=== PATIENT | female | born 1995 | race Caucasian/White ===

== ENCOUNTER 2023-07-03 07:27 | Outpatient (AMB) | payer OTHER, SELFPAY ==
[2023-07-03 07:49] VITALS: BP 98/60; PULSE 74; O2SAT 98; BMI 24.6
--- NOTE | 2023-07-03 07:49 | MHC.PC.OV ---
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 1. Little interest or pleasure in doing things: not at all 2. Feeling down, depressed, or hopeless: not at all 3. Trouble falling or staying asleep, or sleeping too much: more than half the days 4. Feeling tired or having little energy: more than half the days 5. Poor appetite or overeating: not at all 6. Feeling bad about yourself - or that you are a failure or have let yourself or your family down: not at all 7. Trouble concentrating on things, such as reading the newspaper or watching television: more than half the days 8. Moving or speaking so slowly that other people could have noticed. Or the opposite - being so fidgety or restless that you have been moving around a lot more than usual: several days 9. Thoughts that you would be better off or of hurting yourself in some way: not at all Total score: 7 Depression Screening Interpretation: Negative Depression Screening Done: Yes Source: Developed by Drs. Seth Stark, Mariah Grove, Rachid Berkowitz and colleagues, with an educational bryan from [employer]. Thrive Questionnaire Date Thrive assessed: 07/03/23 I am a: Patient What is your living situation today?: I have a steady place to live Within the past 12 months, did the food you bought not last and you didn't have the money to get more?: Never true Within the past 12 months, did you worry whether your food would run out before you got money to buy more?: Never true Do you have trouble paying for medicines?: No Do you have trouble getting transportation to medical appointments?: No Do you have trouble paying your heating and electricity bill?: No Do you have trouble taking care of your child, family member or friend?: No Do you have trouble with day-to-day activities such as bathing, preparing meals, shopping, managing finances, etc.?: No Are you currently unemployed and looking for a job?: No Are you interested in more education?: No THRIVE Score: 0 AUDIT C Alcohol Use Questionnaire (AUDIT-C) 1. How often do you have a drink containing alcohol?: Monthly or less 2. How many drinks containing alcohol do you have on a typical day when you are drinking?: 1 or 2 3. How often do you have six or more drinks on one occasion?: Never Total Score: 1 YASMANY-7 AMB Questionnaire YASMANY-7 Date YASMANY - 7 assessed: 07/03/23 Feeling nervous, anxious, or on edge: 1 = Several days Not being able to stop or control worryin = Several days Worrying too much about different things: 1 = Several days Trouble relaxin = Not at all Being so restless that it is hard to sit still: 1 = Several days Becoming easily annoyed or irritable: 1 = Several days Feeling afraid as if something awful might happen: 2 = More than half the days Total YASMANY-7 score (0-4 normal; 5-9 mild; 10-14 moderate; 15-21 severe): 7 Source: Developed by Drs. Seth Stark, Mariah Grove, Rachid Berkowitz and colleagues, with an educational bryan from [employer]. Review of Systems Const All systems reviewed & are unremarkable except as noted in HPI and below Reports no additional complaints Eyes Reports no additional complaints ENT Reports no additional complaints Card Reports no additional complaints Resp Reports no additional complaints GI Reports no additional complaints Reports no additional complaints Physical exam (Primary Care) Vital Signs: Last Vital Signs Pulse 74 07/03/23 07:49 BP 98/60 07/03/23 07:49 Pulse Ox 98 07/03/23 07:49 Oxygen Delivery Method Room Air 07/03/23 07:49 BMI result Body Mass Index 24.6 Tobacco/Smoking Status: Tobacco use Status Tobacco use date assessed 07/03/23 07/03/23 08:00 Patient Tobacco Use Status Never used Tobacco 07/03/23 08:00 e-Cigarette/Vaping Use Never Used 07/03/23 08:00 PHQ-9: PHQ-9 Score PHQ-9: Total score 7 07/03/23 08:03 Depression Screening Interpretation: Negative Thrive Assessment: Date of Thrive Assessment Date Thrive assessed 07/03/23 07/03/23 08:03 Const General: no acute distress HENMT Head: Yes normal to inspection Ears: hearing grossly normal bilaterally Face and sinus: Yes normal facial exam Mouth: Normal oral and palatal mucosa present Throat: Yes posterior oropharynx normal Eyes General: appearance normal, both eyes and all related structures Neck Neck: Yes no lymphadenopathy and Yes supple Resp Effort & Inspection: normal respiratory effort Auscultation: clear to auscultation bilaterally Cardio Rhythm: regular rhythm Heart sounds: S1 normal heart sound present and S2 normal heart sound present GI Inspection: Yes normal to inspection Palpation (GI): Soft to palpation Percussion: Yes normal to percussion Auscultation: normal bowel sounds Assessment and Plan Assessment & Plan (1) Annual physical exam: Code(s): Z00.00 - Encounter for general adult medical examination without abnormal findings Plan: Well-balanced diet, regular physical activity discussed with the patient. 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 Panel Fast Today N20.0 - Calculus of kidney, Z00.00 - Encounter for general adult medical examination without abnormal findings, Z01.419 - Encounter for gynecological examination (general) (routine) without abnormal findings Complete Blood Count Auto Diff Today N20.0 - Calculus of kidney, Z00.00 - Encounter for general adult medical examination without abnormal findings, Z01.419 - Encounter for gynecological examination (general) (routine) without abnormal findings Lipid Panel Today N20.0 - Calculus of kidney, Z00.00 - Encounter for general adult medical examination without abnormal findings, Z01.419 - Encounter for gynecological examination (general) (routine) without abnormal findings UA w Microscopic Today N20.0 - Calculus of kidney, Z00.00 - Encounter for general adult medical examination without abnormal findings, Z01.419 - Encounter for gynecological examination (general) (routine) without abnormal findings Medications: New sertraline 50 mg PO DAILY 90 tabs 0RF Coding Level of Care Code New Pt Prev Care 18-39yr(37150 Diagnoses Annual physical exam Z00.00 Nephrolithiasis N20.0 Normal pelvic exam Z01.419 Reflux, vesicoureteral N13.70
== END 2023-07-03 08:20 | disposition home or self-care (01) ==
PROVIDERS: PCP Internal Medicine; Visit Provider Internal Medicine
DX: Z00.00 Encounter for general adult medical examination without abnormal findings (principal); N20.0 Calculus of kidney; Z01.419 Encounter for gynecological examination (general) (routine) without abnormal findings; N13.70 Vesicoureteral-reflux, unspecified
CPT/HCPCS: 99385

== ENCOUNTER 2023-07-03 08:16 | Outpatient (REF) | payer OTHER, SELFPAY ==
[2023-07-03 11:25] LABS: MANUAL DIFF FLAG NO
[2023-07-03 11:35] LABS: Basophils Percent Auto 0.5 % (0-2); Eosinophils Absolute Auto 0.2 X10*3/uL (0.0-0.4); Eosinophils Percent Auto 3.5 % (0-4); Hematocrit 41.5 % (37.0-47.0); Hemoglobin 13.9 g/dl (12.0-16.0); Imm Gran Abs Auto 0.01 X10*3/uL (0.00-0.03); Imm Gran Pct Auto 0.2 % (0.0-0.4); Lymphocytes Absolute Auto 1.9 X10*3/uL (1.2-4.9); Mean Corpuscular HGB Conc 33.5 g/dl (31.0-35.0); Mean Corpuscular Hemoglobin 30.2 pg (27.0-33.0); Mean Corpuscular Volume 90.2 fL (80.0-98.0); Mean Platelet Volume 10.7 fL (9.4-12.3); Monocytes Absolute Auto 0.5 X10*3/uL (0.1-1.2); Monocytes Percent Auto 7.5 % (2-11); Neutrophils Absolute Auto 3.4 x10*3/uL (2.0-8.3); Neutrophils Percent Auto 56.3 % (45-73); Platelet Count 234 X10*3/uL (160-400); Red Cell Distribution Width 12.9 % (11.0-16.0)
[2023-07-03 11:40] LABS: Appearance Urine Clear; Color Urine Yellow; Glucose Urine UA Negative (Negative); Leukocyte Esterase Urine Moderate (2+) (Negative); Nitrite Urine Negative (Negative); PH 6.5 (5.0-9.0); Specific Gravity - Urine 1.015 (1.005-1.025); UMIC TRIGGER UA YES; Urine Blood Negative (Negative); Urine Ketones Negative (Negative); Urine Protein Negative (Neg-Trace)
[2023-07-03 11:43] LABS: Alanine Aminotransferase 11 U/L (0-31); Albumin Level 4.3 g/dL (3.5-5.0); Alkaline Phosphatase 47 U/L (39-117); Anion Gap 9 (12-20); Aspartate Amino Transferase 14 U/L (5-31); Bilirubin Total 0.5 mg/dL (0.0-1.0); Blood Urea Nitrogen 15 mg/dL (9-16); Calcium 9.2 mg/dL (8.4-10.2); Carbon Dioxide 27 mmol/L (22-29); Chloride 107 mmol/L (96-108); Cholesterol 154 mg/dL (<200); Estimated Glomerular Filt Rate > 60; Glucose Fasting 87 mg/dL (60-99); HDL Cholesterol 54 mg/dL (>40); LDL Cholesterol Calculated 93 mg/dL (<100); Potassium 4.3 mmol/L (3.3-5.1); Sodium 139 mmol/L (135-145); Total Protein 7.3 g/dL (6.5-8.0); Triglycerides 39 mg/dL (<150)
[2023-07-03 11:44] LABS: Bacteria Urine Trace (None Seen); Hyaline Casts Urine 0-2 /LPF (0-2); RBC Urine 0-2 /HPF (0-2)
== END 2023-07-03 08:17 | disposition home or self-care (01) ==
LOC: HO.HMGCLDS 08:16
PROVIDERS: PCP Internal Medicine; Visit Provider Internal Medicine
DX: Z00.00 Encounter for general adult medical examination without abnormal findings (principal); N20.0 Calculus of kidney
CPT/HCPCS: 36415; 80053; 80061; 81001; 85025

== ENCOUNTER 2023-07-25 09:54 | Outpatient (AMB) | payer OTHER, SELFPAY ==
[2023-07-25 11:16] VITALS: BP 110/72; PULSE 90; TEMP 37.5; O2SAT 98; BMI 23.6
--- NOTE | 2023-07-25 11:16 | AM.OFFWIN_ITS ---
Intake Vital Signs 07/25/23 11:16 Height 5 ft 1 in Weight 125 lb BMI 23.6 BP 110/72 Blood Pressure Location Lt brachial Position Sitting Pulse 90 Pulse Source Pulse Oximeter Temp 99.5 F Temp Source Temporal Artery Scan Pulse Oximetry (%) 98 Oxygen Delivery Method Room Air Intake Visit Reasons: EP ?Strep Intake Note: pt is here today for strep started yesterday Patient Tobacco Use Status: Never used Tobacco Allergies No Known Allergies Allergy (Verified 07/25/23 11:19) Do you need a note to return to daycare/school/sports/work: No HPI HPI Comments History of Present Illness Details 27 y/o female patient who [facility] with c/o Sore- throat since yesterday. Daughter at home with positive Strep infection. 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 Housing: House Patient Tobacco Use Status: Never used Tobacco e-Cigarette/Vaping Use: Never Used Cognitive needs: No Hearing needs: No Vision needs: No Review of Systems Const All systems reviewed & are unremarkable except as noted in HPI and below Physical Exam Vital Signs: Last Vital Signs Temp 99.5 F 07/25/23 11:16 Pulse 90 07/25/23 11:16 BP 110/72 07/25/23 11:16 Pulse Ox 98 07/25/23 11:16 Oxygen Delivery Method Room Air 07/25/23 11:16 BMI result Body Mass Index 23.6 Const General: comfortable and no acute distress Orientation/consciousness: patient oriented x3 HEENT Head: Yes normocephalic Ears: external ears normal and TM's normal bilaterally General nose exam: Normal nasal mucous membranes and turbinates present and No nasal discharge present Face and sinus: Yes sinuses nontender Mouth: moist mucous membranes Throat: Yes posterior oropharynx normal Resp Effort & Inspection: normal respiratory effort, able to speak in complete sentences and no cough Auscultation: clear to auscultation bilaterally, no crackles, no rales, no rhonchi and no wheezes Cardio Rate: regular rate Rhythm: regular rhythm Neuro General: patient oriented x3 Results AMB Rapid Strep AMB Rapid Strep Negative Last Edit by Adithya Hernandez MA on 07/25/23 11:30 Results Reviewed Results Reviewed: Laboratory Last Values Strep Scn Rapid Clinic Negative 07/25/23 11:29 Assessment & Plan Assessment & Plan (1) Acute pharyngitis: Code(s): J02.9 - Acute pharyngitis, unspecified Qualifiers: Pharyngitis/tonsillitis etiology: unspecified etiology Qualified Code(s): J02.9 - Acute pharyngitis, unspecified Plan: - OTC cold remedies - Rest and hydrate with warm fluids and honey - Acetaminophen for pain relief. Medications: New amoxicillin 500 mg PO BID 14 caps 0RF 7 days J02.9 - Acute pharyngitis, unspecified Coding Level of Care Code Est Pt Level 3 (19016) Diagnoses Acute pharyngitis, unspecified etiology J02.9 Pharyngitis/tonsillitis etiology: unspecified etiology Time Spent (min) 15
== END 2023-07-25 12:10 | disposition home or self-care (01) ==
PROVIDERS: PCP Internal Medicine; Visit Provider Nurse Practitioner Family
DX: J02.9 Acute pharyngitis, unspecified (principal)
CPT/HCPCS: 87880; 99213

== ENCOUNTER 2023-07-25 10:41 | Outpatient (REF) | payer OTHER, SELFPAY ==
[2023-07-25 13:38] LABS: Appearance Urine Clear; Color Urine Yellow; Glucose Urine UA Negative (Negative); Leukocyte Esterase Urine Negative (Negative); Nitrite Urine Negative (Negative); Specific Gravity - Urine 1.015 (1.005-1.025); Urine Blood Negative (Negative); Urine Ketones Negative (Negative); Urine Protein Negative (Neg-Trace)
[2023-07-25 13:43] LABS: Bacteria Urine None Seen (None Seen); Hyaline Casts Urine 0-2 /LPF (0-2); RBC Urine 0-2 /HPF (0-2); WBC Urine 0-5 /HPF (0-5)
== END 2023-07-25 10:42 | disposition home or self-care (01) ==
LOC: HO.HMGCLDS 10:41
PROVIDERS: PCP Internal Medicine; Visit Provider Internal Medicine
DX: R82.71 Bacteriuria (principal); N13.70 Vesicoureteral-reflux, unspecified
CPT/HCPCS: 81001; 87086

== ENCOUNTER 2024-03-10 15:53 | Outpatient (AMB) | payer OTHER, SELFPAY ==
--- NOTE | 2024-03-10 16:06 | AM.OFFWIN_ITS ---
Intake Vital Signs 03/10/24 16:09 Weight 125 lb 6 oz BP 120/80 Blood Pressure Location Rt brachial Position Sitting Pulse 89 Pulse Source Pulse Oximeter Pulse Oximetry (%) 97 Oxygen Delivery Method Room Air Intake Visit Reasons: EP discharge issues Intake Note: Patient here for vaginal discharge and smell that she noticed this morning. Patient Tobacco Use Status: Never used Tobacco Allergies No Known Allergies Allergy (Verified 03/10/24 16:09) HPI HPI Comments History of Present Illness Details Patient is a 28-year-old female complaining of vaginal discharge, that is white in color and a little bit of it increased from her normal as well as a fishy odor that she noticed this morning. She states she has never had this happened before but her friend is a nurse and recommended she come to the inic. 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 Housing: House Patient Tobacco Use Status: Never used Tobacco e-Cigarette/Vaping Use: Never Used Cognitive needs: No Hearing needs: No Vision needs: No Review of Systems Const All systems reviewed & are unremarkable except as noted in HPI and below Physical Exam Vital Signs: Last Vital Signs Pulse 89 03/10/24 16:09 BP 120/80 03/10/24 16:09 Pulse Ox 97 03/10/24 16:09 Oxygen Delivery Method Room Air 03/10/24 16:09 Const General: cooperative, healthy appearing, comfortable, no acute distress and well developed Orientation/consciousness: patient oriented x3 Limitations: no limitations HEENT Head: Yes normal to inspection Neck Neck: Yes normal visual inspection and Yes supple Neuro General: patient oriented x3 Assessment & Plan Assessment & Plan (1) Vaginal discharge: Code(s): N89.8 - Other specified noninflammatory disorders of vagina Plan: Patient is self swabbed, we will send bacterial vaginosis panel to the lab. We will treat once resulted. Orders: Orders Bacterial Vaginosis Panel Today N89.8 - Other specified noninflammatory disorders of vagina Coding Level of Care Code Est Pt Level 3 (63207) Diagnoses Vaginal discharge N89.8
[2024-03-10 16:09] VITALS: BP 120/80; PULSE 89; O2SAT 97
== END 2024-03-10 16:44 | disposition home or self-care (01) ==
PROVIDERS: PCP Internal Medicine; Visit Provider Physician Assistant
DX: N89.8 Other specified noninflammatory disorders of vagina (principal)

== ENCOUNTER 2024-03-10 15:53 | Outpatient (REF) | payer OTHER, SELFPAY ==
[2024-03-11 14:54] LABS: Bacterial Vaginosis PCR NEGATIVE (Negative); Candida Group PCR NOT DETECTED (Not Detect); Candida glab krusei PCR NOT DETECTED (Not Detect); Trichomonas vaginalis PCR NOT DETECTED (Not Detect)
== END 2024-03-10 15:54 | disposition home or self-care (01) ==
LOC: HO.LNP 15:53
PROVIDERS: PCP Internal Medicine; Visit Provider Physician Assistant
DX: N89.8 Other specified noninflammatory disorders of vagina (principal)
CPT/HCPCS: 0352U; 99212

== ENCOUNTER 2024-03-31 08:39 | Outpatient (AMB) | payer OTHER, SELFPAY ==
--- NOTE | 2024-03-31 09:12 | AM.OFFWIN_ITS ---
Intake Vital Signs 03/31/24 09:13 Height 5 ft 1 in Weight 126 lb BMI 23.8 BP 110/78 Blood Pressure Location Lt brachial Position Sitting Pulse 111 H Pulse Source Pulse Oximeter Temp 97.9 F Temp Source Oral Pulse Oximetry (%) 98 Oxygen Delivery Method Room Air Intake Visit Reasons: EP ?Abscess ~ Throat Intake Note: Patient here for abscess on right side of throat that has been present since this morning. Patient Tobacco Use Status: Never used Tobacco Allergies No Known Allergies Allergy (Verified 03/31/24 09:14) Do you need a note to return to daycare/school/sports/work: No HPI HPI Comments History of Present Illness Details This is a 28-year-old female with no stated past medical history presenting for evaluation of an infection ?with pus? on the right side of her throat that has been present since yesterday. Patient states that she had similar symptoms in the back of her throat last week however they resolved. Patient denies having any fevers, chills, ear pain but does describe difficulty and pain when swallowing. Patient has not taken any medication for treatment of her symptoms. 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 Housing: House Patient Tobacco Use Status: Never used Tobacco e-Cigarette/Vaping Use: Never Used Cognitive needs: No Hearing needs: No Vision needs: No Review of Systems Const All systems reviewed & are unremarkable except as noted in HPI and below Denies chills and Denies fever(s) Eyes Reports no additional complaints ENT Denies otalgia and Reports sore throat (lesion right oropharynx) Card Reports no additional complaints Resp Reports no additional complaints GI Reports no additional complaints Musc Reports no additional complaints Skin/Breast Reports system reviewed and no additional complaints, except as documented Neuro Reports no additional complaints Psych Reports no additional complaints Endo Reports no additional complaints Physical Exam Vital Signs: Last Vital Signs Temp 97.9 F 03/31/24 09:13 Pulse 111 H 03/31/24 09:13 BP 110/78 03/31/24 09:13 Pulse Ox 98 03/31/24 09:13 Oxygen Delivery Method Room Air 03/31/24 09:13 BMI result Body Mass Index 23.8 Patient is afebrile. Const General: cooperative, healthy appearing, comfortable, no acute distress, alert and awake Nutritional Appearance: average body habitus Orientation/consciousness: patient oriented x3 Limitations: no limitations HEENT Head: Yes normal to inspection and Yes normocephalic Ears: hearing grossly normal bilaterally, external ears normal, TM's normal bilaterally, EAC's normal and mastoids normal General nose exam: Normal external nose present Face and sinus: Yes normal facial exam Mouth: Normal oral and palatal mucosa present and moist mucous membranes Throat: No posterior oropharynx normal, Yes uvula midline and Yes posterior oropharynx abnormal (erythema, mild edema right posterior oropharynx, no exudates) Eyes General: appearance normal, both eyes and all related structures Neck Lymphatic: no lymphadenopathy noted Neuro General: patient oriented x3 Psych Appearance: grossly normal Mental Status: mental status grossly normal Insight: Good insight present (Psych) Judgement: Good judgement present (Psych) Assessment & Plan Assessment & Plan (1) Peritonsillar abscess: Comment: Patient has cell phone photo from this morning with CABINET MAKER larger than what is noted on examination and with exudates. Appears to have drained throughout the morning. Given recurrence of lesion from last week, will treat as an active CABINET MAKER with Clindamycin. Follow-up precautions reviewed. Patient does not warrant emergent referral to ENT. Code(s): J36 - Peritonsillar abscess Plan: Ibuprofen 600 mg every 6-8 hours; clindamycin 600 mg t.i.d.. Medications: New clindamycin HCl 600 mg (2 x 300 mg) PO TID 42 caps 0RF Coding Level of Care Code Est Pt Level 3 (02921) Diagnoses Peritonsillar abscess J36 Time Spent (min) 20
[2024-03-31 09:13] VITALS: BP 110/78; PULSE 111; TEMP 36.6; O2SAT 98; BMI 23.8
== END 2024-03-31 10:57 | disposition home or self-care (01) ==
PROVIDERS: PCP Internal Medicine; Visit Provider Physician Assistant
DX: J36 Peritonsillar abscess (principal)

== ENCOUNTER → 2024-03-31 08:39 | Outpatient (BNVA) | payer OTHER, SELFPAY | PROVIDERS: PCP Internal Medicine; Visit Provider Physician Assistant | DX: J36 Peritonsillar abscess (principal) | CPT/HCPCS: 99212 ==

== ENCOUNTER 2024-05-29 12:36 | Outpatient (AMB) | payer OTHER, SELFPAY ==
--- NOTE | 2024-05-29 12:37 | MHC.PC.OV ---
Vital Signs 05/29/24 12:38 Height 5 ft 1 in Weight 128 lb BMI 24.2 BP 104/66 Blood Pressure Location Lt brachial Position Sitting Respiration 18 Pulse 88 Pulse Source Pulse Oximeter Temp 98.4 F Temp Source Oral Pulse Oximetry (%) 97 Oxygen Delivery Method Room Air Intake Visit Reasons: Big lump on LT breast Intake Note: Pt is here today for a sick visit. Pt c/o big lump on L breast that she noticed a week ago. Allergies clindamycin Allergy (Intermediate, Verified 05/29/24 12:42) Rash Medication List - Last Reconciled 05/29/24 by Elisabet Mercado MD sertraline 50 mg PO DAILY Tobacco use date assessed: 05/29/24 Dental Screening Dental Screen Date: 05/29/24 Did you have a dental visit in the last 12 months?: Yes Did you have a dental problem in the last 6 months where you did not have access to dental care?: No Was dental information given to patient?: Patient has dentist HPI Big lump on LT breast HPI Details Patient presents complaining of recurrent lump on the left breast becoming more tender and larger for the last week. 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 1. Little interest or pleasure in doing things: not at all 2. Feeling down, depressed, or hopeless: not at all 3. Trouble falling or staying asleep, or sleeping too much: not at all 4. Feeling tired or having little energy: not at all 5. Poor appetite or overeating: not at all 6. Feeling bad about yourself - or that you are a failure or have let yourself or your family down: not at all 7. Trouble concentrating on things, such as reading the newspaper or watching television: not at all 8. Moving or speaking so slowly that other people could have noticed. Or the opposite - being so fidgety or restless that you have been moving around a lot more than usual: not at all 9. Thoughts that you would be better off or of hurting yourself in some way: not at all Total score: 0 Depression Screening Interpretation: Negative Depression Screening Done: Yes 60780 - PHQ-9 Billing: Yes Source: Developed by Drs. Seth Stark, Mariah Grove, Rachid Berkowitz and colleagues, with an educational bryan from [employer]. Thrive Questionnaire Date Thrive assessed: 05/29/24 I am a: Patient What is your living situation today?: I have a steady place to live Within the past 12 months, did the food you bought not last and you didn't have the money to get more?: Never true Within the past 12 months, did you worry whether your food would run out before you got money to buy more?: Never true Do you have trouble paying for medicines?: Yes Do you have trouble getting transportation to medical appointments?: No Do you have trouble paying your heating and electricity bill?: No Do you have trouble taking care of your child, family member or friend?: No Do you have trouble with day-to-day activities such as bathing, preparing meals, shopping, managing finances, etc.?: No Are you currently unemployed and looking for a job?: No Are you interested in more education?: No Please select the resources that you would like help with: None Currently or been in a relationship where the following occur: No concerns reported THRIVE Score: 0 AUDIT C Alcohol Use Questionnaire (AUDIT-C) 1. How often do you have a drink containing alcohol?: 2-4 times a month 2. How many drinks containing alcohol do you have on a typical day when you are drinking?: 1 or 2 3. How often do you have six or more drinks on one occasion?: Never Total Score: 2 YASMANY-7 AMB Questionnaire YASMANY-7 Date YASMANY - 7 assessed: 05/29/24 Feeling nervous, anxious, or on edge: 1 = Several days Not being able to stop or control worryin = Several days Worrying too much about different things: 1 = Several days Trouble relaxin = Several days Being so restless that it is hard to sit still: 1 = Several days Becoming easily annoyed or irritable: 1 = Several days Feeling afraid as if something awful might happen: 1 = Several days Total YASMANY-7 score (0-4 normal; 5-9 mild; 10-14 moderate; 15-21 severe): 7 Source: Developed by Drs. Seth Stark, Mariah Grove, Rachid Berkowitz and colleagues, with an educational bryan from [employer]. YASMANY-7 Assessment Billing YASMANY-7 Assessment Tool: YASMANY-7 Assessment 53865 Review of Systems Const All systems reviewed & are unremarkable except as noted in HPI and below Card Reports no additional complaints Resp Reports no additional complaints GI Reports no additional complaints Reports no additional complaints Physical exam (Primary Care) Vital Signs: Last Vital Signs Temp 98.4 F 05/29/24 12:38 Pulse 88 05/29/24 12:38 Resp 18 05/29/24 12:38 BP 104/66 05/29/24 12:38 Pulse Ox 97 05/29/24 12:38 Oxygen Delivery Method Room Air 05/29/24 12:38 BMI result Body Mass Index 24.2 Tobacco/Smoking Status: Tobacco use Status Tobacco use date assessed 05/29/24 05/29/24 12:43 Patient Tobacco Use Status Never used Tobacco 05/29/24 12:43 e-Cigarette/Vaping Use Never Used 05/29/24 12:43 PHQ-9: PHQ-9 Score PHQ-9: Total score 0 05/29/24 12:46 Depression Screening Interpretation: Negative Thrive Assessment: Date of Thrive Assessment Date Thrive assessed 05/29/24 05/29/24 12:46 Currently or been in a relationship where the following occur: No concerns reported Const General: no acute distress HENMT Head: Yes normal to inspection Neck Neck: Yes supple Chest Breast/axilla inspection: normal inspection of the breasts and normal inspection of the axillae Breast/axilla palpation: normal palpation of the axillae and abnormal palpation of the breast (Left breast and 01:00 o'clock tender ill-defined thickened tissue,? mass) Resp Effort & Inspection: normal respiratory effort Auscultation: clear to auscultation bilaterally Cardio Rhythm: regular rhythm Heart sounds: S1 normal heart sound present and S2 normal heart sound present Coding Level of Care Code Est Pt Level 3 (08502) Diagnoses Breast lump N63.0 Additional Codes YASMANY-7 Assessment Billing - YASMANY-7 Assessment Tool: YASMANY-7 Assessment 07342 ([id number]) PHQ-9 - 65556 - PHQ-9 Billing: Yes ([id number]) Assessment & Plan Assessment & Plan (1) Breast lump: Comment: left 1 o'clock Code(s): N63.0 - Unspecified lump in unspecified breast Category: Medical Plan: Referred for diagnostic mammogram and ultrasound Orders: Orders MM tomosynthesis diagnostic LT Today N63.0 - Unspecified lump in unspecified breast US breast LT complete Today N63.0 - Unspecified lump in unspecified breast Medications: New sertraline 50 mg PO DAILY 90 tabs 2RF
== END 2024-05-29 14:29 | disposition home or self-care (01) ==
PROVIDERS: PCP Internal Medicine; Visit Provider Internal Medicine

== ENCOUNTER → 2024-05-29 12:36 | Outpatient (BNVA) | payer OTHER, SELFPAY | PROVIDERS: PCP Internal Medicine; Visit Provider Internal Medicine | DX: N63.20 Unspecified lump in the left breast, unspecified quadrant (principal) | CPT/HCPCS: 96127; 99212 ==

== ENCOUNTER 2024-06-04 13:45 | Outpatient (REF) | payer OTHER, SELFPAY ==
[2024-06-04 17:19] LABS: Influenza A PCR POSITIVE (Negative); Influenza B PCR NEGATIVE (Negative); Resp Syncy Virus RNA Qual PCR NEGATIVE (Negative); SARS COV2 PCR INHOUSE NEGATIVE (Negative)
== END 2024-06-04 13:46 | disposition home or self-care (01) ==
LOC: HO.LAB 13:45
PROVIDERS: PCP Internal Medicine; Visit Provider Nurse Practitioner Family
DX: J06.9 Acute upper respiratory infection, unspecified (principal)
CPT/HCPCS: 0241U; 87880; 99212

== ENCOUNTER 2024-06-04 13:45 | Outpatient (AMB) | payer OTHER, SELFPAY ==
[2024-06-04 14:25] VITALS: BP 110/74; PULSE 80; TEMP 36.4; O2SAT 98; BMI 24.2
--- NOTE | 2024-06-04 14:25 | MHC.OFFWIV ---
Intake Vital Signs 06/04/24 14:25 Height 5 ft 1 in Weight 128 lb BMI 24.2 BP 110/74 Blood Pressure Location Rt brachial Position Sitting Pulse 80 Pulse Source Pulse Oximeter Temp 97.6 F Temp Source Oral Pulse Oximetry (%) 98 Intake Visit Reasons: EP sore throat Patient Tobacco Use Status: Never used Tobacco Allergies clindamycin Allergy (Intermediate, Verified 06/04/24 14:25) Rash Do you need a note to return to daycare/school/sports/work: No HPI HPI Comments History of Present Illness Details 28 y/o female patient who presents to the [facility] in clinic with c/o headaches, body aches since Saturday and Sore-throat since this morning. Has sick children at home with RSV and Strept. 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 Housing: House Patient Tobacco Use Status: Never used Tobacco e-Cigarette/Vaping Use: Never Used service: No Current occupational status: employed Cognitive needs: No Hearing needs: No Vision needs: No Review of Systems Const All systems reviewed & are unremarkable except as noted in HPI and below Physical Exam Vital Signs: Last Vital Signs Temp 97.6 F 06/04/24 14:25 Pulse 80 06/04/24 14:25 BP 110/74 06/04/24 14:25 Pulse Ox 98 06/04/24 14:25 BMI result Body Mass Index 24.2 Const General: cooperative and no acute distress Nutritional Appearance: overweight Orientation/consciousness: patient oriented x3 HEENT Head: Yes normocephalic Ears: external ears normal and TM abnormal with fluid behind the TM bilateral General nose exam: No nasal discharge present Face and sinus: Yes sinuses nontender Mouth: moist mucous membranes Throat: Yes uvula midline Resp Effort & Inspection: normal respiratory effort and able to speak in complete sentences Auscultation: clear to auscultation bilaterally, no crackles, no rales, no rhonchi and no wheezes Cardio Heart sounds: S1 normal heart sound present and S2 normal heart sound present Neuro General: patient oriented x3 Results AMB Rapid Strep AMB Rapid Strep Negative Last Edit by Aneudy Harper CMA on 06/04/24 14:39 Results Reviewed Results Reviewed: Laboratory Last Values Strep Scn Rapid Clinic Negative 06/04/24 14:38 Assessment & Plan Assessment & Plan (1) Acute respiratory disease: Code(s): J06.9 - Acute upper respiratory infection, unspecified Plan: Ordered SARs Rapid Strep Negative Ordered Tamiflu Empirically. Orders: Orders SARS-CoV2/FLU/RSV Today J06.9 - Acute upper respiratory infection, unspecified AMB Rapid Strep Screen Today Z13.9 - Encounter for screening, unspecified Medications: New oseltamivir (Tamiflu) 75 mg PO BID 10 caps 0RF 5 days J06.9 - Acute upper respiratory infection, unspecified Coding Level of Care Code Est Pt Level 4 (89839) Diagnoses Acute respiratory disease J06.9 Time Spent (min) 20
== END 2024-06-04 14:54 | disposition home or self-care (01) ==
PROVIDERS: PCP Internal Medicine; Visit Provider Nurse Practitioner Family
DX: J06.9 Acute upper respiratory infection, unspecified (principal); Z13.9 Encounter for screening, unspecified

== ENCOUNTER 2024-06-15 10:58 | Outpatient (REF) | payer OTHER, SELFPAY ==
--- NOTE | ~2024-06-15 | US_ITS ---
EXAMINATION: US DIAGNOSTIC ULTRASOUND BREAST, LEFT Limited left breast ultrasound. CLINICAL INFORMATION: 28-year-old female with left palpable lump for one year greatest size increases with periods.. COMPARISON: Comparison is made with relevant prior imaging. TECHNIQUE: Ultrasound of the breast is performed with real-time beauchamp scale imaging and color Doppler. FINDINGS: Targeted color Doppler ultrasound scanning in the area the patient's palpable lump in the upper outer left breast demonstrates normal fibroglandular breast tissue. There is no sonographic abnormality. Results are discussed with the patient at time of visit. US/US breast LT limited mamm only IMPRESSION: No sonographic abnormality in the upper outer quadrant in the area the patient's palpable lump. Recommend clinical evaluation and follow-up. ASSESSMENT: BI-RADS 1: Negative RECOMMENDATION: 1. Patient should be managed based on the clinical impression. Decision to proceed with biopsy should be based on clinical grounds and degree of clinical concern. 2. Otherwise, routine annual screening mammography at age 39. This patient's information was entered into a reminder system with a target due date for their next mammogram. Electronically signed by: Ceci Cesar DO 06/15/2024 12:08 PM MARINO
== END 2024-06-15 10:59 | disposition home or self-care (01) ==
LOC: HO.MAMMO 10:58
PROVIDERS: PCP Internal Medicine; Visit Provider Internal Medicine
DX: N63.21 Unspecified lump in the left breast, upper outer quadrant (principal)
CPT/HCPCS: 76642

== ENCOUNTER → 2024-06-15 11:45 | Outpatient (BNV) | payer OTHER, SELFPAY | PROVIDERS: PCP Internal Medicine; Visit Provider Internal Medicine | DX: N63.21 Unspecified lump in the left breast, upper outer quadrant (principal) | CPT/HCPCS: 76642 ==

== ENCOUNTER 2024-08-11 11:17 | Outpatient (AMB) | payer OTHER, SELFPAY ==
--- NOTE | 2024-08-11 12:27 | MHC.PC.OV ---
Vital Signs 08/11/24 12:43 Height 5 ft 1 in Weight 121 lb BMI 22.9 BP 102/66 Blood Pressure Location Rt brachial Position Sitting Pulse 86 Pulse Source Pulse Oximeter Temp 98.3 F Temp Source Oral Pulse Oximetry (%) 96 Oxygen Delivery Method Room Air Intake Visit Reasons: Annual PE Intake Note: Pt is here today for PE. 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 Housing: House Patient Tobacco Use Status: Never used Tobacco e-Cigarette/Vaping Use: Never Used service: No Current occupational status: employed Cognitive needs: No Hearing needs: No Vision needs: No Questionnaire Thrive Questionnaire Date Thrive assessed: 05/29/24 I am a: Patient What is your living situation today?: I have a steady place to live Within the past 12 months, did the food you bought not last and you didn't have the money to get more?: Never true Within the past 12 months, did you worry whether your food would run out before you got money to buy more?: Never true Do you have trouble paying for medicines?: Yes Do you have trouble getting transportation to medical appointments?: No Do you have trouble paying your heating and electricity bill?: No Do you have trouble taking care of your child, family member or friend?: No Do you have trouble with day-to-day activities such as bathing, preparing meals, shopping, managing finances, etc.?: No Are you currently unemployed and looking for a job?: No Are you interested in more education?: No Please select the resources that you would like help with: None Currently or been in a relationship where the following occur: No concerns reported THRIVE Score: 0 YASMANY-7 AMB Questionnaire YASMANY-7 Date YASMANY - 7 assessed: 05/29/24 Source: Developed by Drs. Seth Stark, Mariah Grove, Rachid Berkowitz and colleagues, with an educational bryan from [employer]. Review of Systems Const All systems reviewed & are unremarkable except as noted in HPI and below Eyes Reports no additional complaints ENT Reports no additional complaints Card Reports no additional complaints Resp Reports no additional complaints GI Reports no additional complaints Reports no additional complaints Physical exam (Primary Care) Vital Signs: Last Vital Signs Temp 98.3 F 08/11/24 12:43 Pulse 86 08/11/24 12:43 BP 102/66 08/11/24 12:43 Pulse Ox 96 08/11/24 12:43 Oxygen Delivery Method Room Air 08/11/24 12:43 BMI result Body Mass Index 22.9 Tobacco/Smoking Status: Tobacco use Status Tobacco use date assessed 08/11/24 08/11/24 12:46 Patient Tobacco Use Status Never used Tobacco 08/11/24 12:27 e-Cigarette/Vaping Use Never Used 08/11/24 12:27 Thrive Assessment: Date of Thrive Assessment Date Thrive assessed 05/29/24 08/11/24 12:27 Currently or been in a relationship where the following occur: No concerns reported Const General: no acute distress HENMT Head: Yes normal to inspection Ears: hearing grossly normal bilaterally Face and sinus: Yes normal facial exam Throat: Yes posterior oropharynx normal Eyes General: appearance normal, both eyes and all related structures Neck Neck: Yes no lymphadenopathy and Yes supple Resp Effort & Inspection: normal respiratory effort Auscultation: clear to auscultation bilaterally Cardio Rhythm: regular rhythm Heart sounds: S1 normal heart sound present and S2 normal heart sound present GI Inspection: Yes normal to inspection Palpation (GI): Soft to palpation Percussion: Yes normal to percussion Auscultation: normal bowel sounds Coding Level of Care Code Est Pt Prev Care 18-39y(63942) Diagnoses Annual physical exam Z00.00 Nephrolithiasis N20.0 Assessment & Plan Assessment & Plan (1) Annual physical exam: Code(s): Z00.00 - Encounter for general adult medical examination without abnormal findings Category: Medical Plan: WELL-BALANCED DIET REGULAR PHYSICAL ACTIVITY DISCUSSED WITH THE PATIENT SHE WILL HAVE A BLOOD WORK TODAY. 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 Panel Today N20.0 - Calculus of kidney, Z00.00 - Encounter for general adult medical examination without abnormal findings IRON PROFILE Today N20.0 - Calculus of kidney, Z00.00 - Encounter for general adult medical examination without abnormal findings US renal BI Today N20.0 - Calculus of kidney UA w Microscopic Today Z00.00 - Encounter for general adult medical examination without abnormal findings
[2024-08-11 12:43] VITALS: BP 102/66; PULSE 86; TEMP 36.8; O2SAT 96; BMI 22.9
== END 2024-08-11 13:03 | disposition home or self-care (01) ==
LOC: HO.HMCC 11:18
PROVIDERS: PCP Internal Medicine; Visit Provider Internal Medicine
DX: Z00.00 Encounter for general adult medical examination without abnormal findings (principal); N20.0 Calculus of kidney

== ENCOUNTER 2024-08-11 11:17 | Outpatient (REF) | payer OTHER, SELFPAY ==
[2024-08-11 16:08] LABS: Appearance Urine Clear; Color Urine Yellow; Glucose Urine UA Negative (Negative); Leukocyte Esterase Urine Negative (Negative); Nitrite Urine Negative (Negative); Specific Gravity - Urine <= 1.005 (1.005-1.025); Urine Blood Negative (Negative); Urine Ketones Negative (Negative); Urine Protein Negative (Neg-Trace)
[2024-08-11 16:12] LABS: MANUAL DIFF FLAG NO
[2024-08-11 16:13] LABS: Bacteria Urine None Seen (None Seen); Hyaline Casts Urine 0-2 /LPF (0-2); RBC Urine 0-2 /HPF (0-2); Squamous Epithelial Cell Urine 0-2 /HPF (0-2); WBC Urine 0-5 /HPF (0-5)
[2024-08-11 16:25] LABS: Basophils Percent Auto 0.4 % (0-2); Eosinophils Absolute Auto 0.1 X10*3/uL (0.0-0.4); Eosinophils Percent Auto 1.5 % (0-4); Hematocrit 41.6 % (37.0-47.0); Imm Gran Abs Auto 0.02 X10*3/uL (0.00-0.03); Imm Gran Pct Auto 0.3 % (0.0-0.4); Lymphocytes Absolute Auto 2.4 X10*3/uL (1.2-4.9); Lymphocytes Percent Auto 33.3 % (20-40); Mean Corpuscular HGB Conc 33.7 g/dl (31.0-35.0); Mean Corpuscular Hemoglobin 30.3 pg (27.0-33.0); Mean Platelet Volume 11.3 fL (9.4-12.3); Monocytes Absolute Auto 0.5 X10*3/uL (0.1-1.2); Monocytes Percent Auto 6.8 % (2-11); Neutrophils Absolute Auto 4.2 x10*3/uL (2.0-8.3); Neutrophils Percent Auto 57.7 % (45-73); Platelet Count 215 X10*3/uL (160-400); Red Blood Count 4.62 X10*6/uL (4.20-5.50); Red Cell Distribution Width 13.2 % (11.0-16.0); White Blood Count 7.2 X10*3/uL (4.8-10.8)
[2024-08-11 19:54] LABS: Alanine Aminotransferase 16 U/L (0-31); Albumin Level 4.5 g/dL (3.5-5.0); Anion Gap 11 (12-20); Aspartate Amino Transferase 20 U/L (5-31); Bilirubin Total 0.5 mg/dL (0.0-1.0); Blood Urea Nitrogen 12 mg/dL (9-16); Calcium 9.5 mg/dL (8.4-10.2); Carbon Dioxide 26 mmol/L (22-29); Chloride 106 mmol/L (96-108); Estimated Glomerular Filt Rate > 60; Glucose Random 86 mg/dL (60-115); Iron 80 mcg/dL (30-160); Percent Iron Saturation 33 % (15-50); Potassium 4.2 mmol/L (3.3-5.1); Sodium 139 mmol/L (135-145); Total Iron Binding Capacity 244 mcg/dL (228-428); Total Protein 7.4 g/dL (6.5-8.0); Unsaturated Iron Binding 164 ug/dL
[2024-08-11 20:18] LABS: Alkaline Phosphatase 51 U/L (39-117); TSH reflex Free T4 1.35 uIU/mL (0.32-4.0)
== END 2024-08-11 11:18 | disposition home or self-care (01) ==
LOC: HO.HMGCLDS 11:17
PROVIDERS: PCP Internal Medicine; Visit Provider Internal Medicine
DX: Z00.00 Encounter for general adult medical examination without abnormal findings (principal); N20.0 Calculus of kidney
CPT/HCPCS: 36415; 80053; 81001; 83540; 84443; 85025; 99395

== ENCOUNTER 2024-09-04 11:27 | Outpatient (REF) | payer OTHER, SELFPAY ==
--- NOTE | ~2024-09-04 | US_ITS ---
CLINICAL HISTORY: N20.0 - Calculus of kidney US Renal Comparison: None Findings: Right kidney normal size and echotexture, 12.0 cm length. Left kidney normal size and echotexture, 8.0 cm length. There is increased echogenicity centrally bilaterally possibly related to nephrocalcinosis. No hydronephrosis of either kidney. Normal color Doppler IMPRESSION: 1. Possible nephrocalcinosis. No acute findings. This document has been electronically signed by: Wolf Ge MD on 09/05/2024 07:57:46
== END 2024-09-04 11:28 | disposition home or self-care (01) ==
LOC: HO.HMGCX 11:27
PROVIDERS: PCP Internal Medicine; Visit Provider Internal Medicine
DX: N20.0 Calculus of kidney (principal)
CPT/HCPCS: 76775

== ENCOUNTER → 2024-09-04 11:30 | Outpatient (BNV) | payer OTHER, SELFPAY | PROVIDERS: PCP Internal Medicine; Visit Provider Specialist | DX: N20.0 Calculus of kidney (principal) | CPT/HCPCS: 76775 ==

== ENCOUNTER 2024-09-11 08:38 | Outpatient (REF) | payer OTHER, SELFPAY | END 2024-09-11 08:39 | disposition home or self-care (01) | LOC: HO.HMGCLDS 08:38 | PROVIDERS: PCP Internal Medicine; Visit Provider Internal Medicine | DX: Z13.89 Encounter for screening for other disorder (principal) ==

== ENCOUNTER 2024-09-15 09:02 | Outpatient (REF) | payer OTHER, SELFPAY ==
[2024-09-15 10:47] LABS: Estimated Glomerular Filt Rate > 60; Phosphorus 3.8 mg/dL (2.7-4.5)
[2024-09-15 10:50] LABS: Vitamin D 25-OH Total 38.9 ng/mL (>30)
[2024-09-15 10:57] LABS: Parathyroid Hormone Intact 27.8 pg/mL (8.7-77.1)
[2024-09-15 12:47] LABS: Creatinine, mg/dL 99.93
[2024-09-15 13:18] LABS: Creatinine, 24Hr Urine 1.4 G/Day (1.0-2.0); Phosphorus, 24 Hr Urine 0.6 G/Day (0.4-1.3); Total Volume 24 Hour Urine 1375 mL
[2024-09-15 13:19] LABS: Creatinine (CrCl) 0.89 mg/dL (0.5-1.4); Creatinine Clearance 107.2 mL/min (85-125)
[2024-09-16 21:04] LABS: Calcium, 24 Hr Urine 237 mg/24 h; Calcium/Creatinine Ratio 165 mg/g creat (30-275); Creatinine 24Hr Urine 1.43 g/24 h (0.50-2.15)
[2024-09-18 06:28] LABS: 24hr Urine Total Volume 1375 mL; Citric Acid, 24hr Urine 506 mg/24 h (100-1300); Citric Acid/Creat Ratio 24U 347 mg/g creat (180-1070); Creatinine, 24U 1.46 g/24 h (0.50-2.15)
[2024-09-24 00:48] LABS: 24hr Urine Total Volume 1375 mL; Oxalic Acid 24 Urine 6.3 mg/24 h (3.6-38.0)
== END 2024-09-15 09:03 | disposition home or self-care (01) ==
LOC: HO.HMGCLDS 09:02
PROVIDERS: PCP Internal Medicine; Visit Provider Internal Medicine
DX: E83.59 Other disorders of calcium metabolism (principal); N29 Other disorders of kidney and ureter in diseases classified elsewhere
CPT/HCPCS: 36415; 82306; 82340; 82507; 82565; 82575; 83945; 83970; 84100; 84105

== ENCOUNTER 2024-10-09 13:53 | Outpatient (AMB) | payer OTHER, SELFPAY ==
[2024-10-09 14:07] VITALS: BP 104/66; PULSE 77; RESP 18; TEMP 36.8; O2SAT 98; BMI 23.0
--- NOTE | 2024-10-09 14:07 | MHC.PC.OV ---
Vital Signs 10/09/24 14:07 Height 5 ft 1 in Weight 122 lb BMI 23.0 BP 104/66 Blood Pressure Location Rt brachial Position Sitting Respiration 18 Pulse 77 Pulse Source Pulse Oximeter Temp 98.2 F Temp Source Oral Pulse Oximetry (%) 98 Oxygen Delivery Method Room Air Intake Visit Reasons: Follow up Intake Note: Pt is here today for a follow up visit on labs. Allergies clindamycin Allergy (Intermediate, Verified 10/09/24 14:08) Rash Medication List - Last Reconciled 10/09/24 by Elisabet Mercado MD nitrofurantoin monohyd/m-cryst 100 mg (Macrobid) 100 mg PO Q12H 7 days sertraline 50 mg PO DAILY Tobacco use date assessed: 10/09/24 Dental Screening Dental Screen Date: 05/29/24 HPI Follow up HPI Details Patient presents for the follow-up of 24 urine collection for possible nephrocalcinosis. Patient has a history of frequent UTIs in a childhood from vesicoureteral reflux. 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 Housing: House Patient Tobacco Use Status: Never used Tobacco e-Cigarette/Vaping Use: Never Used service: No Current occupational status: employed Cognitive needs: No Hearing needs: No Vision needs: No Questionnaire Thrive Questionnaire Date Thrive assessed: 05/29/24 I am a: Patient What is your living situation today?: I have a steady place to live Within the past 12 months, did the food you bought not last and you didn't have the money to get more?: Never true Within the past 12 months, did you worry whether your food would run out before you got money to buy more?: Never true Do you have trouble paying for medicines?: Yes Do you have trouble getting transportation to medical appointments?: No Do you have trouble paying your heating and electricity bill?: No Do you have trouble taking care of your child, family member or friend?: No Do you have trouble with day-to-day activities such as bathing, preparing meals, shopping, managing finances, etc.?: No Are you currently unemployed and looking for a job?: No Are you interested in more education?: No Please select the resources that you would like help with: None Currently or been in a relationship where the following occur: No concerns reported THRIVE Score: 0 YASMANY-7 AMB Questionnaire YASMANY-7 Date YASMANY - 7 assessed: 05/29/24 Source: Developed by Drs. Seth Stark, Mariah Grove, Rachid Berkowitz and colleagues, with an educational bryan from [employer]. Review of Systems Const All systems reviewed & are unremarkable except as noted in HPI and below Eyes Reports no additional complaints ENT Reports no additional complaints Resp Reports no additional complaints GI Reports no additional complaints Reports no additional complaints Physical exam (Primary Care) Vital Signs: Last Vital Signs Temp 98.2 F 10/09/24 14:07 Pulse 77 10/09/24 14:07 Resp 18 10/09/24 14:07 BP 104/66 10/09/24 14:07 Pulse Ox 98 10/09/24 14:07 Oxygen Delivery Method Room Air 10/09/24 14:07 BMI result Body Mass Index 23.0 Tobacco/Smoking Status: Tobacco use Status Tobacco use date assessed 10/09/24 10/09/24 14:08 Patient Tobacco Use Status Never used Tobacco 10/09/24 14:08 e-Cigarette/Vaping Use Never Used 10/09/24 14:08 Thrive Assessment: Date of Thrive Assessment Date Thrive assessed 05/29/24 10/09/24 14:08 Currently or been in a relationship where the following occur: No concerns reported Const General: no acute distress HENMT Ears: hearing grossly normal bilaterally Resp Effort & Inspection: normal respiratory effort Auscultation: clear to auscultation bilaterally Cardio Rhythm: regular rhythm Heart sounds: S1 normal heart sound present and S2 normal heart sound present GI Inspection: Yes normal to inspection Palpation (GI): Soft to palpation Coding Level of Care Code Est Pt Level 3 (84009) Diagnoses Nephrolithiasis N20.0 Reflux, vesicoureteral N13.70 Assessment & Plan Assessment & Plan (1) Nephrolithiasis: Comment: [facility], s/p nephrostomy 2015, renal ultrasound August 2024 left kidney 8 cm, no nephrolithiasis Code(s): N20.0 - Calculus of kidney Category: Medical Plan: Monitor renal ultrasound (2) Reflux, vesicoureteral: Comment: since childhood, nonfunctional small left kidney, f/u urology Code(s): N13.70 - Vesicoureteral-reflux, unspecified Category: Medical Plan: Prevention of UTIs discussed with the patient. She has a standing order for urinalysis and Macrobid prescription sent to the pharmacy to take in the onset of UTI symptoms. Orders: Orders UA w Microscopic Today N20.0 - Calculus of kidney UA w Microscopic 6 Months N20.0 - Calculus of kidney Comprehensive [place]. Panel Fast 6 Months N20.0 - Calculus of kidney Lipid Panel 6 Months N20.0 - Calculus of kidney Comprehensive [place]. Panel Fast 10 Months Z00.00 - Encounter for general adult medical examination without abnormal findings Complete Blood Count Auto Diff 10 Months Z00.00 - Encounter for general adult medical examination without abnormal findings UA w Microscopic 10 Months Z00.00 - Encounter for general adult medical examination without abnormal findings Medications: New nitrofurantoin monohyd/m-cryst 100 mg (Macrobid) must administer with a meal/food 100 mg PO Q12H 14 caps 0RF 7 days Discontinued sertraline Discontinued Reason: Doctor's Order 50 mg PO DAILY 90 tabs 2RF
== END 2024-10-09 15:03 | disposition home or self-care (01) ==
LOC: HO.HMCC 13:54
PROVIDERS: PCP Internal Medicine; Visit Provider Internal Medicine
DX: N20.0 Calculus of kidney (principal); N13.70 Vesicoureteral-reflux, unspecified

== ENCOUNTER → 2024-10-09 13:53 | Outpatient (BNVA) | payer OTHER, SELFPAY | PROVIDERS: PCP Internal Medicine; Visit Provider Internal Medicine | DX: N20.0 Calculus of kidney (principal); N13.70 Vesicoureteral-reflux, unspecified; Z87.440 Personal history of urinary (tract) infections | CPT/HCPCS: 99212 ==

== ENCOUNTER 2024-10-19 10:46 | Outpatient (AMB) | payer OTHER, SELFPAY ==
[2024-10-19 10:50] VITALS: BP 100/66; PULSE 94; RESP 18; TEMP 36.9; O2SAT 96; BMI 22.9
--- NOTE | 2024-10-19 10:50 | A.OFFPC_ITS ---
Vital Signs 10/19/24 10:50 Height 5 ft 1 in Weight 121 lb BMI 22.9 BP 100/66 Blood Pressure Location Lt brachial Position Sitting Respiration 18 Pulse 94 Pulse Source Pulse Oximeter Temp 98.5 F Temp Source Oral Pulse Oximetry (%) 96 Oxygen Delivery Method Room Air Intake Visit Reasons: Yeast infection Intake Note: Pt is here today for a sick visit. Pt c/o vaginal itching and discomfort, pt also c/o lump in vaginal area. Allergies clindamycin Allergy (Intermediate, Verified 10/09/24 14:08) Rash Medication List - Last Reconciled 10/19/24 by Elisabet Mercado MD nitrofurantoin monohyd/m-cryst 100 mg (Macrobid) 100 mg PO Q12H 7 days Tobacco use date assessed: 10/09/24 Dental Screening Dental Screen Date: 05/29/24 HPI Yeast infection HPI Details Patient complains of vaginal and irritation pruritus and a small palpable bump on the labia minora. 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 Housing: House Patient Tobacco Use Status: Never used Tobacco e-Cigarette/Vaping Use: Never Used service: No Current occupational status: employed Cognitive needs: No Hearing needs: No Vision needs: No Questionnaire Thrive Questionnaire Date Thrive assessed: 05/29/24 I am a: Patient What is your living situation today?: I have a steady place to live Within the past 12 months, did the food you bought not last and you didn't have the money to get more?: Never true Within the past 12 months, did you worry whether your food would run out before you got money to buy more?: Never true Do you have trouble paying for medicines?: Yes Do you have trouble getting transportation to medical appointments?: No Do you have trouble paying your heating and electricity bill?: No Do you have trouble taking care of your child, family member or friend?: No Do you have trouble with day-to-day activities such as bathing, preparing meals, shopping, managing finances, etc.?: No Are you currently unemployed and looking for a job?: No Are you interested in more education?: No Please select the resources that you would like help with: None Currently or been in a relationship where the following occur: No concerns reported THRIVE Score: 0 YASMANY-7 AMB Questionnaire YASMANY-7 Date YASMANY - 7 assessed: 05/29/24 Source: Developed by Drs. Seth Stark, Mariah Grove, Rachid Berkowitz and colleagues, with an educational bryan from [employer]. Review of Systems Const All systems reviewed & are unremarkable except as noted in HPI and below Eyes Reports no additional complaints ENT Reports no additional complaints Card Reports no additional complaints Resp Reports no additional complaints GI Reports no additional complaints Physical exam (Primary Care) Vital Signs: Last Vital Signs Temp 98.5 F 10/19/24 10:50 Pulse 94 10/19/24 10:50 Resp 18 10/19/24 10:50 BP 100/66 10/19/24 10:50 Pulse Ox 96 10/19/24 10:50 Oxygen Delivery Method Room Air 10/19/24 10:50 BMI result Body Mass Index 22.9 Tobacco/Smoking Status: Tobacco use Status Tobacco use date assessed 10/09/24 10/19/24 10:56 Patient Tobacco Use Status Never used Tobacco 10/19/24 10:56 e-Cigarette/Vaping Use Never Used 10/19/24 10:56 Thrive Assessment: Date of Thrive Assessment Date Thrive assessed 05/29/24 10/19/24 10:56 Currently or been in a relationship where the following occur: No concerns reported Const General: no acute distress Cardio Rhythm: regular rhythm Heart sounds: S1 normal heart sound present and S2 normal heart sound present GI Inspection: Yes normal to inspection Palpation (GI): Soft to palpation Percussion: Yes normal to percussion Auscultation: normal bowel sounds Other: Slight vulvar erythema and Bartholin cyst present on the right labia minora, no vaginal discharge Speculum Exam - Vagina: erythematous Speculum Exam - Cervix: normal appearance of the cervix Coding Level of Care Code Est Pt Level 3 (35717) Diagnoses Vaginitis N76.0 Bartholin cyst N75.0 Assessment & Plan Assessment & Plan (1) Vaginitis: Code(s): N76.0 - Acute vaginitis Category: Medical Plan: Check bacterial vaginosis panel Diflucan 2 tablets is prescribed (2) Bartholin cyst: Code(s): N75.0 - Cyst of Bartholin's gland Category: Medical Plan: Local care discussed with the patient. she was advised to apply warm compress or have Sitz baths daily for 15 minutes to have assist open and drain naturally Patient will be referred to keyboarding clerk per her request Orders: Orders Bacterial Vaginosis Panel Today N76.0 - Acute vaginitis Referrals CARDIOVASCULAR TECHNICIAN Referral N76.0 - Acute vaginitis Medications: New fluconazole 150 mg PO Q3D 2 tabs 0RF 2 doses
== END 2024-10-19 11:25 | disposition home or self-care (01) ==
LOC: HO.HMCC 10:47
PROVIDERS: PCP Internal Medicine; Visit Provider Internal Medicine
DX: N76.0 Acute vaginitis (principal); N75.0 Cyst of Bartholin's gland

== ENCOUNTER 2024-10-19 10:46 | Outpatient (REF) | payer OTHER, SELFPAY ==
[2024-10-19 20:52] LABS: Bacterial Vaginosis PCR NEGATIVE (Negative); Candida Group PCR DETECTED (Not Detect); Candida glab krusei PCR NOT DETECTED (Not Detect); Trichomonas vaginalis PCR NOT DETECTED (Not Detect)
== END 2024-10-19 10:47 | disposition home or self-care (01) ==
LOC: HO.LAB 10:46
PROVIDERS: PCP Internal Medicine; Visit Provider Internal Medicine
DX: N76.0 Acute vaginitis (principal); N75.0 Cyst of Bartholin's gland
CPT/HCPCS: 81515; 99212

== ENCOUNTER 2024-11-04 11:19 | Outpatient (REF) | payer OTHER, SELFPAY ==
[2024-11-04 20:54] LABS: Bacterial Vaginosis PCR NEGATIVE (Negative); Candida Group PCR NOT DETECTED (Not Detect); Candida glab krusei PCR NOT DETECTED (Not Detect); Trichomonas vaginalis PCR NOT DETECTED (Not Detect)
[2024-11-04 21:37] LABS: CT PCR NOT DETECTED (Not Detect.); NG PCR NOT DETECTED (Not Detect.)
== END 2024-11-04 11:20 | disposition home or self-care (01) ==
LOC: HO.LNP 11:19
PROVIDERS: PCP Internal Medicine; Visit Provider Obstetrics & Gynecology
DX: N90.7 Vulvar cyst (principal)
CPT/HCPCS: 81515; 87491; 87591; 99202

== ENCOUNTER 2024-11-04 11:19 | Outpatient (AMB) | payer OTHER, SELFPAY ==
--- NOTE | 2024-11-04 11:30 | A.OFFVIS_ITS ---
Vital Signs 11/04/24 11:31 Height 5 ft 1 in Weight 121 lb BMI 22.9 Intake Visit Reasons: acute vaginitis Lockstitch Collar Setter Required: No Lockstitch Collar Setter Services: Lockstitch Collar Setter Present Information Interpreted: non-clinical & clinical Mechanical Development Engineer: Mechanical Development Engineer Present (Rhonda JO) Allergies clindamycin Allergy (Intermediate, Verified 11/04/24 11:31) Rash HPI Comments Details: Presenting complaining of right vulvar cyst nontender descending persistent for the last few months. 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 Housing: House Patient Tobacco Use Status: Never used Tobacco e-Cigarette/Vaping Use: Never Used service: No Current occupational status: employed Cognitive needs: No Hearing needs: No Vision needs: No Review of Systems Const All systems reviewed & are unremarkable except as noted in HPI and below Physical Exam Vital Signs: BMI result Body Mass Index 22.9 General: Yes no CVA tenderness External Female Exam: No normal external appearance (Right labia minora 0.5 cm sebaceous cyst) and normal appearance of the urethra Speculum Exam - Vagina: normal appearance of the vagina, normal palpation, no lesions and no masses Speculum Exam - Cervix: normal appearance of the cervix, normal palpation, no lesions, no masses and nontender Bimanual exam- vagina & uterus: normal bimanual exam, normal palpation, uterine size normal, normal palpation, uterine shape normal, No Cervical tenderness present and non-tender Bimanual Exam- Adnexa, other: normal adnexae Back/Spine/Pelvis Back: no CVA tenderness Assessment & Plan Assessment & Plan (1) Sebaceous cyst of labia: Code(s): N90.7 - Vulvar cyst Category: Medical Plan: Discussed with the patient the finding on pelvic exam, right small sebaceous cyst, instructions given the patient to call in case it causes some discomfort, pain or persists, will proceed with I&D. All questions answered, the patient verbalized understanding (2) Vaginitis: Code(s): N76.0 - Acute vaginitis Category: Medical Plan: GC/CT with BV panel collected. Will check the results and treat accordingly. All questions answered, the patient verbalized understanding Orders: Orders CT NG by PCR Vag/Cerv Today N76.0 - Acute vaginitis Coding Level of Care Code New Pt Level 3 (89050) Diagnoses Sebaceous cyst of labia N90.7 Vaginitis N76.0
[2024-11-04 11:31] VITALS: BMI 22.9
== END 2024-11-04 12:29 | disposition home or self-care (01) ==
LOC: HO.HWS 11:20
PROVIDERS: PCP Internal Medicine; Visit Provider Obstetrics & Gynecology
DX: N90.7 Vulvar cyst (principal)
CPT/HCPCS: 99203

== ENCOUNTER 2025-03-26 11:44 | Outpatient (AMB) | payer OTHER, SELFPAY ==
--- NOTE | 2025-03-26 11:45 | A.OFFPC_ITS ---
Vital Signs 03/26/25 11:46 Height 5 ft 1 in Weight 130 lb BMI 24.6 BP 114/70 Blood Pressure Location Lt brachial Position Sitting Respiration 15 Pulse 75 Pulse Source Pulse Oximeter Temp 98.3 F Temp Source Oral Pulse Oximetry (%) 97 Oxygen Delivery Method Room Air Intake Visit Reasons: swollen lymph nodes Intake Note: Pt is here today for a sick visit. Pt c/o swollen lymp node on the L side of her neck and pt also has a spot on her L forearm that she would like to have it looked at. Allergies clindamycin Allergy (Intermediate, Verified 03/26/25 11:50) Rash Medication List - Last Reconciled 03/26/25 by Elisabet Mercado MD ascorbate calcium (vitamin C) PO meloxicam 15 mg PO DAILY Tobacco use date assessed: 03/26/25 Dental Screening Dental Screen Date: 05/29/24 HPI swollen lymph nodes HPI Details Pt presents complaining of pain in left submandibular region for 1 week. The pain is worse when patient's turning her head to the side. 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 Housing: House Patient Tobacco Use Status: Never used Tobacco e-Cigarette/Vaping Use: Never Used service: No Current occupational status: employed Cognitive needs: No Hearing needs: No Vision needs: No Questionnaire Thrive Questionnaire Date Thrive assessed: 05/29/24 I am a: Patient What is your living situation today?: I have a steady place to live Within the past 12 months, did the food you bought not last and you didn't have the money to get more?: Never true Within the past 12 months, did you worry whether your food would run out before you got money to buy more?: Never true Do you have trouble paying for medicines?: Yes Do you have trouble getting transportation to medical appointments?: No Do you have trouble paying your heating and electricity bill?: No Do you have trouble taking care of your child, family member or friend?: No Do you have trouble with day-to-day activities such as bathing, preparing meals, shopping, managing finances, etc.?: No Are you currently unemployed and looking for a job?: No Are you interested in more education?: No Please select the resources that you would like help with: None Currently or been in a relationship where the following occur: No concerns reported THRIVE Score: 0 YASMANY-7 AMB Questionnaire YASMANY-7 Date YASMANY - 7 assessed: 05/29/24 Source: Developed by Drs. Seht Stark, Mariah Grove, Rachid Berkowitz and colleagues, with an educational bryan from [employer]. Review of Systems Const All systems reviewed & are unremarkable except as noted in HPI and below Eyes Reports no additional complaints ENT Reports no additional complaints Card Reports no additional complaints Resp Reports no additional complaints GI Reports no additional complaints Reports no additional complaints Physical exam (Primary Care) Vital Signs: Last Vital Signs Temp 98.3 F 03/26/25 11:46 Pulse 75 03/26/25 11:46 Resp 15 03/26/25 11:46 BP 114/70 03/26/25 11:46 Pulse Ox 97 03/26/25 11:46 Oxygen Delivery Method Room Air 03/26/25 11:46 BMI result Body Mass Index 24.6 Tobacco/Smoking Status: Tobacco use Status Tobacco use date assessed 03/26/25 03/26/25 11:51 Patient Tobacco Use Status Never used Tobacco 03/26/25 11:51 e-Cigarette/Vaping Use Never Used 03/26/25 11:51 Thrive Assessment: Date of Thrive Assessment Date Thrive assessed 05/29/24 03/26/25 11:51 Currently or been in a relationship where the following occur: No concerns reported Const General: no acute distress HENMT Head: Yes normal to inspection Ears: TM's normal bilaterally Face and sinus: Yes normal facial exam Mouth: Normal oral and palatal mucosa present Throat: Yes posterior oropharynx normal Eyes General: appearance normal, both eyes and all related structures Neck Other: reproducible tenderness over left sternocleidomastoid muscle, no soft tissue swelling Neck: Yes no lymphadenopathy and Yes supple Resp Effort & Inspection: normal respiratory effort Auscultation: clear to auscultation bilaterally Cardio Rhythm: regular rhythm Heart sounds: S1 normal heart sound present and S2 normal heart sound present Coding Level of Care Code Est Pt Level 3 (52309) Diagnoses Neck muscle strain S16.1XXA Assessment & Plan Assessment & Plan (1) Neck muscle strain: Code(s): S16.1XXA - Strain of muscle, fascia and tendon at neck level, initial encounter Category: Medical Plan: meloxicam for 7 days is prescribed and supportive care discussed with the patient Medications: New meloxicam 15 mg PO DAILY 7 tabs 0RF
[2025-03-26 11:46] VITALS: BP 114/70; PULSE 75; RESP 15; TEMP 36.8; O2SAT 97; BMI 24.6
== END 2025-03-26 13:46 | disposition home or self-care (01) ==
PROVIDERS: PCP Internal Medicine; Visit Provider Internal Medicine
DX: S16.1XXA Strain of muscle, fascia and tendon at neck level, initial encounter (principal)

== ENCOUNTER → 2025-03-26 11:44 | Outpatient (BNVA) | payer OTHER, SELFPAY | PROVIDERS: PCP Internal Medicine; Visit Provider Internal Medicine | DX: S16.1XXA Strain of muscle, fascia and tendon at neck level, initial encounter (principal) | CPT/HCPCS: 99212 ==

== ENCOUNTER 2025-03-29 11:25 | Outpatient (REF) | payer OTHER, SELFPAY ==
[2025-03-29 14:21] LABS: Resp Syncy Virus RNA Qual PCR NEGATIVE (Negative); SARS COV2 PCR INHOUSE NEGATIVE (Negative)
== END 2025-03-29 11:26 | disposition home or self-care (01) ==
LOC: HO.LNP 11:25
PROVIDERS: Visit Provider Internal Medicine
DX: R09.89 Other specified symptoms and signs involving the circulatory and respiratory systems (principal)
CPT/HCPCS: 87637